=== PATIENT | female | born 1970 | race Caucasian/White ===

== ENCOUNTER 2018-06-08 11:27 | Emergency (ER) | payer OTHER ==
[2018-06-08 12:20] LABS: URINE BLOOD (Dip) POC Negative (NEGATIVE); URINE GLUCOSE (Dip) POC Negative (NEGATIVE); URINE KETONES (Dip) POC Negative (NEGATIVE); URINE LEUKOCYTE EST (Dip) POC Negative (NEGATIVE); URINE NITRITE (Dip) POC Negative (NEGATIVE); URINE TOTAL PROTEIN POC Negative (NEGATIVE)
== END 2018-06-08 14:17 | disposition home or self-care (01) ==
LOC: FTE 14:17
DX: R10.9 Unspecified abdominal pain (principal)
CPT/HCPCS: 76775; 81003; 81025; 99284-25